=== PATIENT | male | born 1940 | race Caucasian/White ===

== ENCOUNTER 2018-02-24 08:38 | Day surgery (SDC) | payer MEDICARE, BC ==
[2018-02-20 15:47] LABS: ALBUMIN 3.8 G/DL (3.4-5.0); ALBUMIN/GLOBULIN RATIO 1.5 (1.1-1.5); ALKALINE PHOSPHATASE 78 IU/L (46-116); BLOOD UREA NITROGEN 15 MG/DL (7-18); BUN/CREATININE RATIO 9.9 (5.4-32.0); CALCIUM 9.8 MG/DL (8.5-10.1); CHLORIDE 107 MMOL/L (99-107); CREATININE 1.51 MG/DL (0.60-1.10); PRE OP ALT 27 U/L (30-65); PRE OP ANION GAP 6 (8-16); PRE OP AST 20 U/L (10-37); PRE OP BILIRUB, TOTAL 1.5 MG/DL (0.0-1.0); PRE OP GLUCOSE 100 MG/DL (70-104); PRE OP SODIUM 144 MMOL/L (135-145); TOTAL CARBON DIOXIDE 30.9 MMOL/L (24-32); TOTAL PROTEIN 6.3 G/DL (6.4-8.2); eGFR 45 ML/MIN
[2018-02-20 16:38] LABS: BASOPHILS % (AUTO) 0.5 % (0-1); EOSINOPHILS # (AUTO) 0.6 X10'3 (0-0.9); EOSINOPHILS % (AUTO) 6.8 % (0-6); LYMPHOCYTES # (AUTO) 1.9 X10'3 (1.1-4.8); LYMPHOCYTES % (AUTO) 23.5 % (21-51); MEAN CORPUSCULAR HGB CONC 34.6 % (33.0-36.5); MEAN CORPUSCULAR VOLUME 101.2 FL (78-98); MEAN PLATELET VOLUME 7.5 FL (7.4-10.4); MONOCYTES # (AUTO) 0.9 X10'3 (0-0.9); MONOCYTES % (AUTO) 10.6 % (2-12); NEUTROPHILS # (AUTO) 4.8 X10'3 (1.8-7.7); NEUTROPHILS % (AUTO) 58.6 % (42-75); PRE OP HEMOGLOBIN 14.3 g/dL (14.0-17.9); PRE OP PLATELET COUNT 209 X10'3 (140-440); RED BLOOD COUNT 4.09 X10'6 (4.70-6.10); RED CELL DISTRIBUTION WIDTH 13.4 % (11.5-14.5)
[2018-02-20 16:41] LABS: PRE OP HEMATOCRIT 41.4 % (42.0-52.0)
[~2018-02-24] VITALS: Ht 193 cm; Wt 113.4 kg
[~2018-02-24 08:38] MED LIST: BUPIVAcaine/PF 2.5 mg/ml (0.25%) 30ml vial ONE; CLOP75TA35 PO; DOCUMENT DATE & TIME OF BETA-BLOCKER PO ONE; DUTA0.5C40 PO; FENO145T25 PO; GABA-581 PO; LIDOcaine 0.5% (5mg/ml) 50ml vial ONE; METO100T7 PO; RANI150C4 PO; VENL75CA61 PO; famotidine 20mg tablet PO ONE; normal saline 1000ml 1,000 ML IV SCH
[2018-02-24] MEDS ORDERED: LIDOcaine 1% (10mg/ml) 2ml vial ONE (09:24)
[2018-02-24] MEDS ORDERED: midazolam 2 mg/2 ml injection ONE (10:17)
[2018-02-24] MEDS ORDERED: fentaNYL/PF 50MCG/1 ML 2ML syringe ONE ×2 (10:17→10:51)
[2018-02-24 10:34] VITALS: BP 118/78
[2018-02-24 10:47] VITALS: BP 118/78
[2018-02-24] MEDS ORDERED: propofol inj 20 ML IV ONE (11:01)
[2018-02-24] MEDS ORDERED: ceFAZolin 1000mg inj ONE (11:01)
[2018-02-24] MEDS ORDERED: ringers solution, lacted 1,000 ML IV SCH (11:14)
[2018-02-24 11:15] VITALS: BP 124/79
[2018-02-24] MEDS ORDERED: ondansetron/PF 4mg/2ml inj IV PRN (11:15)
[2018-02-24] MEDS ORDERED: morphine 10mg/ml inj. IV PRN (11:15)
[2018-02-24 11:25] VITALS: BP 121/77
[2018-02-24 11:35] VITALS: BP 114/78
[2018-02-24 11:45] VITALS: BP 123/76
== END 2018-02-24 11:45 | disposition home or self-care (01) ==
LOC: PAS 08:38
PROVIDERS: ATTEND Orthopaedic Surgery Hand Surgery
DX: M72.0 Palmar fascial fibromatosis [Dupuytren] (principal); M62.89 Other specified disorders of muscle; I10 Essential (primary) hypertension; N40.0 Benign prostatic hyperplasia without lower urinary tract symptoms; M19.90 Unspecified osteoarthritis, unspecified site; G89.29 Other chronic pain; K21.9 Gastro-esophageal reflux disease without esophagitis; E66.9 Obesity, unspecified; G47.33 Obstructive sleep apnea (adult) (pediatric); Z95.0 Presence of cardiac pacemaker; Z88.6 Allergy status to analgesic agent; Z87.891 Personal history of nicotine dependence; Z88.5 Allergy status to narcotic agent; Z79.2 Long term (current) use of antibiotics; Z98.890 Other specified postprocedural states; Z79.899 Other long term (current) drug therapy; Z68.30 Body mass index [BMI] 30.0-30.9, adult
CPT/HCPCS: 26123; 36415; 80053; 85025; 93005; A6222; A6449; J0690; J2001; J2250; J2704; J3010; J3490; J7030; J7120